=== PATIENT | female | born 1960 | race Caucasian/White ===

== ENCOUNTER → 2017-01-15 | Outpatient (CLI) | payer SELFPAY ==
--- NOTE | 2017-01-15 11:04 | P.HPOB ---
History of Present Illness H&P Date: 01/15/17 Chief Complaint: The patient is here for her routine gynecologic exam and mammogram. This is a 56-year-old with an LMP of 2012. The patient is without gynecologic complaints and denies any postmenopausal bleeding. Review of Systems She is gained about 12 pounds over the last 3 years. She denies respiratory, cardiac or G.I. problems. Past Medical History Past Medical History: Thyroid Disorder (Hypothyroidism) Additional Past Medical History / Comment(s): History of anxiety. Past Surgical History: Breast Surgery (Breast implants in 1998 and bilateral revision in 2013. These are saline implants.), Tonsillectomy, Tubal Ligation Past Psychological History: Anxiety Smoking Status: Never smoker Past Alcohol Use History: Occasional (About one alcohol containing drink per month.) Past Drug Use History: None Reported - Past Family History Father Family Medical History: Diabetes Mellitus Additional Family Medical History / Comment(s): Grandmother had colon cancer. Medications and Allergies Home Medications Medication Instructions Recorded Confirmed Type Calcium/Magnesium/Zinc 1 PO DAILY 01/15/17 History [Tyltyqy-Zzhtcczig-Qzwq Tablet] Levothyroxine Sodium [Synthroid] 1 PO DAILY 01/15/17 History Venlafaxine HCl [Effexor] 1 PO DAILY 01/15/17 History Allergies Allergy/AdvReac Type Severity Reaction Status Date / Time sulfamethoxazole Allergy Unknown Unknown Verified 01/15/17 11:01 [From Bactrim] trimethoprim [From Bactrim] Allergy Unknown Unknown Verified 01/15/17 11:01 Exam - Vital Signs Vital signs: Blood pressure 121/61, height 5'2", weight 143 pounds, BMI 26, temperature 98.2 , pulse 64. This is a well-developed well-nourished white female who is alert and oriented times 3 in no acute distress. HEENT: Within normal limits. NECK: Supple without mass or thyromegaly. CHEST AND LUNGS: Clear to auscultation. HEART: Regular rate and rhythm. BREASTS: Are without mass or discharge. AXILLARY EXAM: Negative for adenopathy. BACK: Negative for CVA tenderness. ABDOMEN: Soft, nontender, without palpable masses. PELVIC EXAM: Normal external genitalia with mild atrophy. Cervix and vagina appear normal with mild atrophy. There is no unusual discharge. There is no evidence of prolapse. The uterus is midposition, nongravid size and nontender. There are no palpable adnexal masses or tenderness. RECTAL EXAM: recto vaginal exam is negative for mass or tenderness and is negative for occult blood. EXTREMITIES: Nontender. IMPRESSION: 1. 56-year-old menopausal female with normal gynecologic exam. PLAN: 1. Pap smear was performed. 2. As examination was discussed. 3. Screening mammogram will be done today. 4. Osteoporosis prevention was discussed. 5. She will return in one year.
--- NOTE | 2017-01-15 12:27 | MM ---
Reason for exam: screening (asymptomatic). Last mammogram was performed 3 years and 5 months ago. History: Family history of breast cancer in cousin at age 42 and breast cancer in maternal grandmother. Retro-pectoral saline implants, 2013. Benign stereotactic core biopsy of the left breast, May 24, 1999. Retro-pectoral saline implants in both breasts, 1998. Physical Findings: A clinical breast exam by your physician is recommended on an annual basis and results should be correlated with mammographic findings. MG Screening Mammo Implant/CAD Bilateral CC, MLO, and ID view(s) were taken. Prior study comparison: August 24, 2013, bilateral MG diagnostic mammo w CAD DEMAR. June 12, 2010, CAD bilateral diagnostic mammogram. The breast tissue is heterogeneously dense. This may lower the sensitivity of mammography. Previous mammotome biopsy in the left breast. There is no discrete abnormality. Subpectoral implants x 2 redemonstrated. ASSESSMENT: Benign, BI-RAD 2 RECOMMENDATION: Routine screening mammogram of both breasts in 1 year.
== END | disposition home or self-care (01) ==
LOC: WWCWWP 09:33
PROVIDERS: ATTEND Obstetrics & Gynecology
DX: Z12.31 Encounter for screening mammogram for malignant neoplasm of breast (principal); Z98.82 Breast implant status

== ENCOUNTER → 2018-06-15 | Outpatient (CLI) | payer BC ==
--- NOTE | 2018-06-15 07:42 | US ---
EXAMINATION TYPE: US thyroid st tissue head/neck DATE OF EXAM: 06/15/2018 COMPARISON: NONE CLINICAL HISTORY: 58-year-old female R74.8 elevated liver enzymes, E04.1 thyroid nodule. Physician fe lt nodule on physical exam. Patient on Synthroid. TECHNIQUE: Multiple sonographic images of the thyroid gland are obtained. FINDINGS: MEASUREMENTS: GLAND SIZE: Right Lobe: 1.7 x 0.6 x 0.5 cm Left Lobe: 1.5 x 0.6 x 0.4 cm Isthmus Thickness: 0.2 cm NODULES RIGHT: # of nodules measured on right: 0 LEFT: # of nodules measured on left: 0 ISTHMUS: # of nodules measured within isthmus: 0 Bilateral neck scanned, no evidence of lymphadenopathy. Aerosol Supervisor notes: Thyroid small in size. No nodules seen. IMPRESSION: Small thyroid gland compatible with hypothyroidism. No discrete nodule identified.
--- NOTE | 2018-06-15 07:45 | US ---
EXAMINATION TYPE: US liver DATE OF EXAM: 06/15/2018 COMPARISON: NONE CLINICAL HISTORY: 58-year-old female R74.8 elevated liver enzymes, E04.1 thyroid nodule. TECHNIQUE: Multiple sonographic images of the right upper quadrant are obtained. FINDINGS: EXAM MEASUREMENTS: Liver Length: 14.1 cm Gallbladder Wall: 0.1 cm CBD: 5.2 mm cm Right Kidney: 10.6 x 5.5 x 3.6 cm Pancreas: Suboptimal visualization of the pancreatic head secondary to shadowing from bowel gas. Vis ualized portions show no gross abnormality. Liver: Mildly heterogeneous, possibly a technical basis. No focal lesion seen. Gallbladder: No stones seen Evidence for sonographic Venegas's sign: No CBD: wnl Right Kidney: wnl IMPRESSION: 1. Mildly heterogeneous appearance to the liver could be on a technical basis or could reflect nonspe cific hepatocellular disease. 2. The bile duct measures 5.2 mm which is within normal limits.
== END | disposition home or self-care (01) ==
LOC: RADUSWWP 06:56
PROVIDERS: ATTEND Family Medicine
DX: R74.8 Abnormal levels of other serum enzymes (principal); E04.1 Nontoxic single thyroid nodule
CPT/HCPCS: 76536; 76705

== ENCOUNTER → 2019-08-16 | Outpatient (CLI) | payer BC ==
--- NOTE | 2019-08-16 16:16 | US ---
EXAMINATION TYPE: US thyroid st tissue head/neck DATE OF EXAM: 08/16/2019 COMPARISON: 06/15/2018 CLINICAL HISTORY: 59-year-old female R59.0 Lymphadenopathy. TECHNIQUE: Multiple sonographic images of the thyroid gland are obtained. FINDINGS: GLAND SIZE: Right Lobe: 3.1 x 1.0 x 0.6 cm Overall Parenchyma: heterogenous Left Lobe: 2.1 x 0.6 x 0.7 cm Overall Parenchyma: heterogeneous Isthmus Thickness: 0.2 cm NODULES RIGHT: # of nodules measured on right: 0 LEFT: # of nodules measured on left: 0 ISTHMUS: # of nodules measured in the isthmus: 0 Bilateral neck scanned, no evidence of lymphadenopathy. IMPRESSION: Small heterogeneous gland. Findings could reflect chronic hypothyroidism or thyroiditis. No discrete nodule is seen. No cervical lymphadenopathy identified. If any enlarging nodes are found clinically, the area can be rescanned.
== END | disposition home or self-care (01) ==
LOC: RADUSWWP 15:38
PROVIDERS: ATTEND Family Medicine
DX: R59.0 Localized enlarged lymph nodes (principal)
CPT/HCPCS: 76536

== ENCOUNTER → 2020-06-20 | Outpatient (CLI) | payer BC ==
[2020-06-20 12:59] VITALS: BP 131/77; PULSE 80; RESP 18; TEMP 98.4
--- NOTE | 2020-06-20 13:37 | P.HPOB ---
History of Present Illness H&P Date: 06/20/20 Chief Complaint: The patient is here for her routine gynecologic exam and ma mmogram. This is a 60-year-old with an LMP of 2012. The patient is without gynecologic complaints and denies any postmenopausal bleeding. Her last Pap smear on 01/15/2017 showed rare ASCUS with negative high-risk HPV testing. Review of Systems The patient has lost 15 pounds over the last year. She attributes the weight loss to better eating habits. She denies respiratory, cardiac, or G.I. problems. Past Medical History Past Medical History: Thyroid Disorder Additional Past Medical History / Comment(s): Hypothyroidism. PAST ENGINE SERVICE REPAIRER HISTORY: She has no history of STDs. History of Any Multi-Drug Resistant Organisms: None Reported Past Surgical History: Breast Surgery, Tonsillectomy, Tubal Ligation Additional Past Surgical History / Comment(s): Breast implants in 1998 with bilateral revision with saline implants in 2013. Colonoscopy 2009. 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 - Past Family History Father Family Medical History: Diabetes Mellitus Additional Family Medical History / Comment(s): Grandmother had colon cancer. Medications and Allergies Home Medications Medication Instructions Recorded Confirmed Type Calcium/Magnesium/Zinc 1 tab PO DAILY 01/15/17 06/20/20 History [Nvasfxl-Wvsekvgpv-Xubc Tablet] Levothyroxine Sodium [Synthroid] 125 mcg PO DAILY 01/15/17 06/20/20 History Venlafaxine HCl [Effexor] 150 mg PO DAILY 01/15/17 06/20/20 History Allergies Allergy/AdvReac Type Severity Reaction Status Date / Time sulfamethoxazole Allergy Unknown Unknown Verified 06/20/20 12:54 [From Bactrim] trimethoprim [From Bactrim] Allergy Unknown Unknown Verified 06/20/20 12:54 Exam Vital Signs Temp Pulse Resp BP Pulse Ox 06/20/20 12:54 98.4 F 80 18 131/77 98 Intake and Output 06/19/20 06/20/20 06/20/20 22:59 06:59 14:59 Other: Weight 58.06 kg Height 5 feet 2-1/2 inches, weight 128 pounds, BMI 23.0. This is a well-developed well-nourished white female who is alert and oriented times 3 in no acute distress. HEENT: Within normal limits. NECK: Supple without mass or thyromegaly. CHEST AND LUNGS: Clear to auscultation. HEART: Regular rate and rhythm. BREASTS: Are without mass or discharge. Breasts are consistent with bilateral implants. AXILLARY EXAM: Negative for adenopathy. BACK: Negative for CVA tenderness. ABDOMEN: Soft, nontender, without palpable masses. PELVIC EXAM: Normal external genitalia with mild atrophy. Cervix and vagina appear normal with mild atrophy. There is no unusual discharge. There is no evidence of prolapse. The uterus is midposition, nongravid size and nontender. There are no palpable adnexal masses or tenderness. RECTAL EXAM: Rectovaginal exam is negative for mass or tenderness and is negative for occult blood. EXTREMITIES: Nontender. IMPRESSION: 1. A 60-year-old menopausal female with normal gynecologic exam. 2. Previous ASCUS Pap smear with negative high-risk HPV testing on 01/15/2017. PLAN: 1. Pap smear cotest was performed. 2. Self breast awareness was discussed with the patient. 3. Screening mammogram will be done today. 4. Osteoporosis prevention was discussed. I have stressed the importance of adequate calcium, vitamin D and regular exercise. Recommended amounts of calcium and vitamin D were also discussed. I have recommended a baseline bone density test and the order slip was given to the patient for this. 5. She is due for a colonoscopy since it has been about 11 years since her last one. She will discuss this with her PCP who can then help to arrange this for her. 6. She was advised to return in one year for her annual well woman exam.
--- NOTE | 2020-06-21 10:52 | MM ---
Reason for exam: screening (asymptomatic). Last mammogram was performed 3 years and 5 months ago. History: Family history of breast cancer in cousin at age 42 and breast cancer in maternal grandmother. Retro-pectoral saline implants, 2013. Benign stereotactic core biopsy of the left breast, May 24, 1999. Retro-pectoral saline implants in both breasts, 1998. Physical Findings: A clinical breast exam by your physician is recommended on an annual basis and results should be correlated with mammographic findings. MG 3D Screen Mammo Imp/Cad Bilateral CC, MLO, and ID view(s) were taken. Prior study comparison: January 15, 2017, bilateral MG screening mammo implant/CAD. August 24, 2013, bilateral MG diagnostic mammo w CAD DEMAR. The breast tissue is heterogeneously dense. This may lower the sensitivity of mammography. Previous mammotome biopsy in the left breast. There is no discrete abnormality. Bilateral subpectoral implants redemonstrated. ASSESSMENT: Benign, BI-RAD 2 RECOMMENDATION: Routine screening mammogram of both breasts in 1 year.
== END ==
LOC: WWCWWP 12:24
PROVIDERS: ATTEND Obstetrics & Gynecology
DX: Z01.419 Encounter for gynecological examination (general) (routine) without abnormal findings (principal); E03.9 Hypothyroidism, unspecified; F41.9 Anxiety disorder, unspecified; Z12.31 Encounter for screening mammogram for malignant neoplasm of breast; Z80.0 Family history of malignant neoplasm of digestive organs
CPT/HCPCS: 77063; 77067

== ENCOUNTER → 2020-08-07 | Outpatient (CLI) | payer BC ==
--- NOTE | 2020-08-07 15:59 | BD ---
EXAMINATION TYPE: Axial Bone Density DATE OF EXAM: 08/07/2020 COMPARISON: NONE CLINICAL HISTORY: Height: 61.5 IN Weight: 123 LBS FRAX RISK QUESTIONS: History of Fracture in Adulthood: LT ANKLE AGE 51 RISK FACTORS HISTORY OF: History of Wrist Fracture: LT WRIST AGE 17 Active: YES Diet low in dairy products/other sources of calcium: YES Postmenopausal woman: AGE 54 MEDICATIONS: Thyroid Medications: YES Which medication: Levothyroxine How Lon+ YEARS Additional Medications: CALCIUM, VIT D, MAGNESIUM, LEVOTHYROXIN EXAM MEASUREMENTS: Bone mineral densitometry was performed using the [employer] System. Bone mineral density as measured about the Lumbar spine is: ----- L1-L4(G/cm2): 0.955 T Score Values are as follows: ----- L2: -1.7 ----- L3: -1.9 ----- L4: -2.5 ----- L1-L4: -1.9 Bone mineral density BASELINE Bone mineral density about the R hip (g/cm2): 0.816 Bone mineral density about the L hip (g/cm2): 0.814 T Score values are as follows: -----R Neck: -1.6 -----L Neck: -1.6 -----R Total: -0.9 -----L Total: -1.0 Bone mineral density BASELINE IMPRESSION: Osteopenia. NOTE: T-SCORE=SD OF THE YOUNG ADULT MEAN.
--- NOTE | 2020-08-09 11:13 | P.PN ---
Progress Note - Text Progress Note Date: 08/09/20 OUTPATIENT FOLLOW-UP NOTE TEST(S)/RESULTS: Bone density test done on 08/07/2020 showed osteopenia. This was a baseline test. METHOD OF NOTIFICATION: A message with this result was left on the patient's voicemail. PATIENT COMMENTS: DIAGNOSIS: osteopenia DISCUSSION: I have also stressed the importance of getting adequate calcium, vitamin D and regular exercise daily. PLAN: We will go without prescription medication at this time and we will plan repeating the bone density test in 2-2-1/2 years. She was also instructed to call if she has any questions about this.
== END | disposition home or self-care (01) ==
LOC: RADBDWWP 13:12
PROVIDERS: ATTEND Obstetrics & Gynecology
DX: M85.80 Other specified disorders of bone density and structure, unspecified site (principal); Z78.0 Asymptomatic menopausal state
CPT/HCPCS: 77080

== ENCOUNTER → 2022-03-06 | Outpatient (CLI) | payer BC ==
--- NOTE | 2022-03-07 17:25 | MM ---
Reason for Exam: Screening (asymptomatic). Last mammogram was performed 1 year(s) and 8 month(s) ago. Patient History: Menarche at age 12. First Full-Term at age 18. Postmenopausal. 05/24/1999, Benign Stereotactic Core Biopsy on the left side. 1998, Bilateral Implants. 2013, Implant(s). Maternal grandmother had breast cancer. Maternal cousin had breast cancer, age 42. Last menstrual period: Risk Values: Lulú 5 year model risk: 1.3%. NCI Lifetime model risk: 5.9%. Prior Study Comparison: 08/24/2013 Bilateral Diagnostic Mammogram, [facility]. 01/15/2017 Bilateral Screening Mammogram, [facility]. 06/20/2020 Bilateral Screening Mammogram, [facility]. Tissue Density: The breast tissue is heterogeneously dense. This may lower the sensitivity of mammography. Findings: Analyzed By CAD. Pattern appears symmetrical and stable. A core markers within the left breast. Bilateral breast prostheses are present. No suspicious groups of microcalcifications, spiculated or lobular masses, architectural distortion or other secondary signs of malignancy are mammographically apparent. Overall Assessment: Benign, BI-RAD 2 Management: Screening Mammogram of both breasts in 1 year. A negative mammogram report should not preclude additional follow up of suspicious palpable abnormalities. Patient should continue monthly self breast exam. A clinical breast exam by your physician is recommended on an annual basis and results should be correlated with mammographic findings. Electronically signed and approved by: Jarod Lozano D.O. Radiologis
== END | disposition home or self-care (01) ==
LOC: RADMAMWWP 14:48
PROVIDERS: ATTEND Family Medicine
DX: Z12.31 Encounter for screening mammogram for malignant neoplasm of breast (principal); Z78.0 Asymptomatic menopausal state; Z80.3 Family history of malignant neoplasm of breast; Z98.890 Other specified postprocedural states; Z98.82 Breast implant status
CPT/HCPCS: 77063; 77067

== ENCOUNTER 2023-02-05 10:21 | Day surgery (SDC) | payer BC, MEDICAID ==
[~2023-02-05 10:21] MED LIST: LACTATED RINGERS 1,000 ML IV SCH
[2023-02-05 11:14] VITALS: TEMP 98.8
[2023-02-05] MEDS ORDERED: LIDOCAINE 1% INJ 10MG/ML (20 ML MDV) ONE (12:00)
[2023-02-05] MEDS ORDERED: PROPOFOL 10 MG/ML 20 ML VIAL IV ONE (12:00)
--- NOTE | 2023-02-05 12:21 | P.PCN ---
Date of Procedure: 02/05/23 Procedure(s) Performed: BRIEF HISTORY: Patient is a 62-year-old pleasant female scheduled for an elective colonoscopy as a part of screening for colon cancer. PROCEDURE PERFORMED: Colonoscopy. PREOPERATIVE DIAGNOSIS: Screening for colon cancer. IV sedation per Anesthesia. PROCEDURE: After informed consent was obtained, the patient, was brought into the endoscopy unit. IV sedation was administered by Anesthesia under continuous monitoring. Digital rectal examination was normal. Initially the Olympus CF-160 flexible video colonoscope was then inserted in the rectum, gradually advanced into the cecum without any difficulty. Careful examination was performed as the scope was gradually being withdrawn. Ileocecal valve and the appendiceal orifice were visualized and appeared normal. Prep was excellent. Mucosa of the cecum, ascending colon, transverse colon, descending colon, sigmoid colon, and rectum appeared normal. Retroflexion was performed in the rectum and no lesions were seen. The patient tolerated the procedure well. IMPRESSION: Normal-appearing colon from rectum to cecum with no evidence of colorectal neoplasia. RECOMMENDATIONS: Findings of this examination were discussed with the patient as well as a family. She was advised to have a repeat screening colonoscopy in 10 years.
[2023-02-05 12:51] VITALS: BP 125/79; PULSE 69; RESP 18
== END 2023-02-05 13:12 | disposition home or self-care (01) ==
LOC: ORWHC2ENDO 10:21
PROVIDERS: ATTEND Internal Medicine Gastroenterology
DX: Z12.11 Encounter for screening for malignant neoplasm of colon (principal); I10 Essential (primary) hypertension; E03.9 Hypothyroidism, unspecified; Z88.1 Allergy status to other antibiotic agents; Z79.890 Hormone replacement therapy; Z79.899 Other long term (current) drug therapy
CPT/HCPCS: 45378; J2001; J2704

== ENCOUNTER → 2023-03-07 | Outpatient (CLI) | payer MEDICAID ==
--- NOTE | 2023-03-10 20:26 | MM ---
Reason for Exam: Screening (asymptomatic). Last screening mammogram was performed 12 month(s) ago. Patient History: Menarche at age 12. First Full-Term at age 18. Postmenopausal. 05/24/1999, Benign Stereotactic Core Biopsy on the left side. 1998, Bilateral Implants. 2013, Implant(s). Maternal grandmother had breast cancer. Maternal cousin had breast cancer, age 42. Risk Values: Lulú 5 year model risk: 1.3%. NCI Lifetime model risk: 5.7%. Prior Study Comparison: 01/15/2017 Bilateral Screening Mammogram, [facility]. 06/20/2020 Bilateral Screening Mammogram, [facility]. 03/06/2022 Bilateral MG 3D screen mammo imp/cad., [facility]. Tissue Density: The breast tissue is heterogeneously dense. This may lower the sensitivity of mammography. Findings: Analyzed By CAD. Bilateral retropectoral saline implants. Microclip left breast from prior biopsy. Chronic nodularity posterior central left MLO view. Asymmetric density posterior central right MLO view and within the outer aspect of the right cc view both appear more defined and further evaluation is recommended. Overall Assessment: Incomplete: need additional imaging evaluation, BI-RAD 0 Management: Special View Mammogram of the right breast. Diagnostic Breast Ultrasound of the right breast. . [facility] will attempt to contact patient to return for supplemental views and ultrasound if indicated. Electronically signed and approved by: Isha Taylor M.D. Radiologist
== END | disposition home or self-care (01) ==
LOC: RADMAMWWP 14:26
PROVIDERS: ATTEND Family Medicine
DX: Z12.31 Encounter for screening mammogram for malignant neoplasm of breast (principal); Z80.3 Family history of malignant neoplasm of breast; Z78.0 Asymptomatic menopausal state; Z98.82 Breast implant status
CPT/HCPCS: 77063; 77067

== ENCOUNTER → 2023-03-20 | Outpatient (CLI) | payer MEDICAID ==
--- NOTE | 2023-03-20 14:53 | MM ---
Reason for Exam: Additional evaluation requested from abnormal screening. Last screening mammogram was performed less than 1 month ago. Patient History: Menarche at age 12. First Full-Term at age 18. Postmenopausal. 05/24/1999, Benign Stereotactic Core Biopsy on the left side. 1998, Bilateral Implants. 2013, Implant(s). Maternal grandmother had breast cancer. Maternal cousin had breast cancer, age 42. Risk Values: Lulú 5 year model risk: 1.3%. NCI Lifetime model risk: 5.7%. Prior Study Comparison: 06/20/2020 Bilateral Screening Mammogram, [facility]. 03/06/2022 Bilateral MG 3D screen mammo imp/cad., [facility]. 03/07/2023 Bilateral MG 3D screen mammo imp/cad., [facility]. Tissue Density: Right: The breast tissue is heterogeneously dense. This may lower the sensitivity of mammography. Findings: Analyzed By CAD. Underlying saline implant noted. The questioned area of asymmetric density central outer and posterior central aspect of the right breast did not persist on additional views. Findings compatible with superimposition shadow. Overall Assessment: Benign, BI-RAD 2 Management: Screening Mammogram of both breasts in 1 year. . Results were given to the patient verbally at the time of exam. Patient should continue monthly self-breast exams. A clinical breast exam by your physician is recommended on an annual basis. This exam should not preclude additional follow-up of suspicious palpable abnormalities. Note on Lulú scores and lifetime risk: 1. A Lulú score greater than 3% is considered moderate risk. If this is the case, consider specialist referral to assess eligibility for a risk reducing agent. 2. If overall lifetime risk for the development of breast cancer is 20% or higher, the patient may qualify for future screening with alternating mammogram and breast MRI. Electronically signed and approved by: Isha Taylor M.D. Radiologist
== END | disposition home or self-care (01) ==
LOC: RADMAMWWP 14:22
PROVIDERS: ATTEND Family Medicine
DX: R92.331 Mammographic heterogeneous density, right breast (principal); Z80.3 Family history of malignant neoplasm of breast; Z78.0 Asymptomatic menopausal state; Z98.82 Breast implant status
CPT/HCPCS: 77061; 77065

== ENCOUNTER → 2024-05-17 | Outpatient (CLI) | payer MEDICAID ==
--- NOTE | 2024-05-17 14:58 | MM ---
Reason for Exam: Screening (asymptomatic). Last mammogram was performed 1 year(s) and 2 month(s) ago. Patient History: Menarche at age 12. First Full-Term at age 18. Postmenopausal. 05/24/1999, Benign Stereotactic Core Biopsy on the left side. 1998, Bilateral Implants. 2013, Implant(s). Maternal grandmother had breast cancer, age 55. Maternal cousin had breast cancer, age 42. Risk Values: Lulú 5 year model risk: 1.4%. NCI Lifetime model risk: 5.4%. Prior Study Comparison: 03/06/2022 Bilateral MG 3D screen mammo imp/cad., [facility]. 03/07/2023 Bilateral MG 3D screen mammo imp/cad., [facility]. 03/20/2023 Right MG 3D work up w/cad w/imp RT, [facility]. Tissue Density: There are scattered areas of fibroglandular density. Findings: Analyzed By CAD. There is no suspicious group of microcalcifications or new suspicious mass in either breast. Bilateral implants are intact. Overall Assessment: Negative, BI-RAD 1 Management: Screening Mammogram of both breasts in 1 year. . Patient should continue monthly self-breast exams. A clinical breast exam by your physician is recommended on an annual basis. This exam should not preclude additional follow-up of suspicious palpable abnormalities. Note on Lulú scores and lifetime risk: 1. A Lulú score greater than 3% is considered moderate risk. If this is the case, consider specialist referral to assess eligibility for a risk reducing agent. 2. If overall lifetime risk for the development of breast cancer is 20% or higher, the patient may qualify for future screening with alternating mammogram and breast MRI. [facility], , 05/17/2024 2:55 PM. Electronically signed and approved by: Chris Tovar M.D. Radiologis
== END | disposition home or self-care (01) ==
LOC: RADMAMWWP 14:14
PROVIDERS: ATTEND Family Medicine
DX: Z12.31 Encounter for screening mammogram for malignant neoplasm of breast (principal); R92.323 Mammographic fibroglandular density, bilateral breasts; Z78.0 Asymptomatic menopausal state; Z80.3 Family history of malignant neoplasm of breast
CPT/HCPCS: 77063; 77067